=== PATIENT | male | born 1985 | race Caucasian/White ===

== ENCOUNTER 2016-09-28 06:40 | Inpatient (IN) | payer OTHER ==
[~2016-09-28] VITALS: Ht 182.9 cm; Wt 102.4 kg
[~2016-09-28 06:40] MED LIST: ALLOPURINOL100 MG PO; BACTRIM,SEPT1 TABLET PO; FOLIC ACID1 MG PO; HYDROCODON-ACE1 EAC7 PO; IBUPROFEN800 MG PO; KEFLEX500 MG PO; METHADONE10 MG PO; NICOTINE PATCH1 EAC2 TD; NORCO 10-325 T1 EACH PO; THERAGRAN1 TABLET PO; VENTOLIN HFA18 GM IH; VITAMIN B-1100 MG PO
[2016-09-28 07:37] LABS: HEMATOCRIT 49.5 % (38.0-50.0); MCH 29.3 PG (29.0-34.0); MCHC 33.7 G/DL (30.0-36.0); MEAN PLAT.VOLUME 9.9 uM^3 (9.0-12.4); PLATELET COUNT 296 K/uL (156-360); RBC DIS.WIDTH-CV 13.3 % (11.8-14.6); RBC DIS.WIDTH-SD 42.5 % (39-53); RED BLOOD COUNT 5.69 M/uL (4.00-5.50); WHITE BLOOD COUNT 8.9 K/uL (4.1-10.2)
[2016-09-28 07:52] LABS: POTASSIUM 3.9 mEq/L (3.7-5.4); SODIUM 143 mEq/L (136-147)
[2016-09-28 07:57] LABS: ADD MIUA? NO; BILIRUBIN NEGATIVE; BLOOD NEGATIVE; COLOR YELLOW ((YELLOW)); GLUCOSE (STRIP) NEGATIVE; KETONES NEGATIVE; LEUKOCYTES NEGATIVE; NITRITE NEGATIVE; PROTEIN (STRIP) NEGATIVE; SPECIFIC GRAVITY 1.013 (1.000-1.030); UROBILINOGEN 0.2 MG/DL (0.2-1.0)
[2016-09-28] MEDS ORDERED: LEVOTHYROXINE100 MCG PO (08:07)
[2016-09-28] MEDS ORDERED: OXCARBAZEPINE300 MG PO (08:07)
[2016-09-28] MEDS ORDERED: QUETIAPINE FUM400 MG PO (08:07)
[2016-09-28 08:12] LABS: CHLORIDE 106 mEq/L (99-109)
[2016-09-28 08:14] LABS: ADD MEDTOX COMMENT Y; AMPHETAMINE NEGATIVE (500 ng/mL); BARBITURATES NEGATIVE (200 ng/mL); BENZODIAZEPINES NEGATIVE (150 ng/mL); COCAINE NEGATIVE (150 ng/mL); INTERNAL CONTROLS VALID? YES; METHADONE NEGATIVE (200 ng/mL); METHAMPHETAMINE NEGATIVE (500 ng/mL); OPIATES (MORPHINE) NEGATIVE (100 ng/mL); OXYCODONE NEGATIVE (100 ng/mL); PHENCYCLIDINE NEGATIVE (25 ng/mL); PROPOXYPHENE NEGATIVE (300 ng/mL); THC CANNABINOIDS PRESUMPTIVE POSITIVE (50 ng/mL); TRICYCLIC ANTIDEPRESSANTS NEGATIVE (300 ng/mL)
[2016-09-28 08:14] LABS: GLUCOSE 95 mg/dL (70-99)
[2016-09-28 08:15] LABS: ANION GAP 14 MEQ/L (2-14)
[2016-09-28 08:16] LABS: TOTAL BILIRUBIN 0.3 mg/dL (0.0-1.0)
[2016-09-28 08:17] LABS: ALKALINE PHOSPHATASE 71 IU/L (3-129); SERUM ETHYL ALCOHOL 211 mg/dL
[2016-09-28 08:18] LABS: GFR ESTIMATE (CALCULATED) > 59 mL/min/; UREA NITROGEN (BUN) 9 mg/dL (9-23)
[2016-09-28 08:21] LABS: LIPASE 19 U/L (1.0-51.0)
[2016-09-28] MEDS ORDERED: SEROQUEL50 MG PO ×2 (14:19)
[2016-09-28] MEDS ORDERED: NEURONTIN300 MG PO (14:20)
[2016-09-28] MEDS ORDERED: SEROQUEL100 MG PO ×2 (14:38)
[2016-09-28 14:56] VITALS: BP 136/74
[2016-09-28 15:36] VITALS: BP 136/74
[2016-09-29 07:29] VITALS: BP 116/55
[2016-09-29 12:00] VITALS: BP 109/59
[2016-09-29 15:02] VITALS: BP 132/60
[2016-09-30 07:26] VITALS: BP 126/81
[2016-09-30 16:15] VITALS: BP 131/74
[2016-10-01 06:07] LABS: POINT-OF-CARE METER ID UU13113830
[2016-10-01 07:44] VITALS: BP 105/61
[2016-10-01 15:27] VITALS: BP 136/73
[2016-10-02 07:58] VITALS: BP 100/57
[2016-10-02 15:17] VITALS: BP 140/80
[2016-10-03 07:40] VITALS: BP 114/56
[2016-10-03 15:29] VITALS: BP 142/78
[2016-10-04 08:34] VITALS: BP 140/85
[2016-10-04] MEDS ORDERED: QUETIAPINE FUM300 MG PO (09:52)
[2016-10-04] MEDS ORDERED: SYNTHROID100 MCG PO (09:52)
[2016-10-04] MEDS ORDERED: NEURONTIN300 MG PO (09:52)
[2016-10-04 11:56] VITALS: BP 129/69
== END 2016-10-04 12:32 | disposition home or self-care (01) | DRG 885 ==
LOC: EME 06:40 → EDOF 13:15 → 1WEST 13:15
PROVIDERS: Nurse Practitioner Family; Psychiatry & Neurology Psychiatry
DX: F31.9 Bipolar disorder, unspecified (principal); R45.851 Suicidal ideations; F22 Delusional disorders; F41.9 Anxiety disorder, unspecified; R05 Cough; F10.10 Alcohol abuse, uncomplicated; F12.10 Cannabis abuse, uncomplicated; F17.210 Nicotine dependence, cigarettes, uncomplicated; E03.9 Hypothyroidism, unspecified; Z59.0 Homelessness
CPT/HCPCS: 71020; 80053; 81003; 82948; 83690; 84443; 84999; 85027; 90839; 97150 GO; 97165 GO; 99281; 99285; G0480

== ENCOUNTER 2016-10-08 01:46 | Inpatient (IN) | payer OTHER ==
[~2016-10-08] VITALS: Ht 182.9 cm; Wt 100.7 kg
[~2016-10-08 01:46] MED LIST changes: +LEVOTHYROXINE100 MCG PO; +NEURONTIN300 MG PO; +OXCARBAZEPINE300 MG PO; +QUETIAPINE FUM300 MG PO; +QUETIAPINE FUM400 MG PO; +SEROQUEL100 MG PO; +SEROQUEL50 MG PO; +SYNTHROID100 MCG PO
[2016-10-08 03:00] LABS: HEMATOCRIT 46.3 % (38.0-50.0); MCH 29.1 PG (29.0-34.0); MCHC 33.9 G/DL (30.0-36.0); MCV 85.9 FL (86-99); MEAN PLAT.VOLUME 9.7 uM^3 (9.0-12.4); PLATELET COUNT 266 K/uL (156-360); RBC DIS.WIDTH-CV 13.2 % (11.8-14.6); RBC DIS.WIDTH-SD 41.1 % (39-53); RED BLOOD COUNT 5.39 M/uL (4.00-5.50); WHITE BLOOD COUNT 7.4 K/uL (4.1-10.2)
[2016-10-08 03:08] LABS: CHLORIDE 107 mEq/L (99-109); POTASSIUM 3.4 mEq/L (3.7-5.4); SODIUM 143 mEq/L (136-147)
[2016-10-08 03:10] LABS: GLUCOSE 102 mg/dL (70-99)
[2016-10-08 03:11] LABS: ANION GAP 15 MEQ/L (2-14)
[2016-10-08 03:13] LABS: SERUM ETHYL ALCOHOL 300 mg/dL
[2016-10-08 03:14] LABS: GFR ESTIMATE (CALCULATED) > 59 mL/min/
[2016-10-08 03:15] LABS: UREA NITROGEN (BUN) 10 mg/dL (9-23)
[2016-10-08 09:41] LABS: BILIRUBIN NEGATIVE; BLOOD NEGATIVE; COLOR YELLOW ((YELLOW)); GLUCOSE (STRIP) NEGATIVE; KETONES NEGATIVE; LEUKOCYTES NEGATIVE; NITRITE NEGATIVE; PROTEIN (STRIP) NEGATIVE; SPECIFIC GRAVITY 1.015 (1.000-1.030); UROBILINOGEN 0.2 MG/DL (0.2-1.0)
[2016-10-08 09:42] LABS: ADD MIUA? NO; UCUL ADDED? NO
[2016-10-08 09:56] LABS: AMPHETAMINE NEGATIVE (500 ng/mL); BARBITURATES NEGATIVE (200 ng/mL); BENZODIAZEPINES NEGATIVE (150 ng/mL); COCAINE NEGATIVE (150 ng/mL); INTERNAL CONTROLS VALID? YES; METHADONE NEGATIVE (200 ng/mL); METHAMPHETAMINE NEGATIVE (500 ng/mL); OPIATES (MORPHINE) NEGATIVE (100 ng/mL); OXYCODONE NEGATIVE (100 ng/mL); PHENCYCLIDINE NEGATIVE (25 ng/mL); PROPOXYPHENE NEGATIVE (300 ng/mL); THC CANNABINOIDS NEGATIVE (50 ng/mL); TRICYCLIC ANTIDEPRESSANTS NEGATIVE (300 ng/mL)
[2016-10-08] MEDS ORDERED: GABAPENTIN300 MG PO (13:54)
[2016-10-08] MEDS ORDERED: NICOTINE PATCH1 EAC2 TD (16:03)
[2016-10-08 16:14] VITALS: BP 134/84
[2016-10-09 07:53] VITALS: BP 131/75
[2016-10-09 16:17] VITALS: BP 135/83
[2016-10-10 07:40] VITALS: BP 124/70
[2016-10-10 15:53] VITALS: BP 138/70
[2016-10-11 07:41] VITALS: BP 126/61
[2016-10-11] MEDS ORDERED: GABAPENTIN300 MG PO (10:31)
[2016-10-11] MEDS ORDERED: SYNTHROID100 MCG PO (10:31)
== END 2016-10-11 12:28 | disposition home or self-care (01) | DRG 885 ==
LOC: EME → EDBD 01:46 → 1WEST 13:25 → EDOF 13:25 → 1WEST 15:52
PROVIDERS: Emergency Medicine
DX: F31.9 Bipolar disorder, unspecified (principal); R45.851 Suicidal ideations; Y90.8 Blood alcohol level of 240 mg/100 ml or more; K21.9 Gastro-esophageal reflux disease without esophagitis; I10 Essential (primary) hypertension; E66.9 Obesity, unspecified; F10.10 Alcohol abuse, uncomplicated; F17.210 Nicotine dependence, cigarettes, uncomplicated; Z59.0 Homelessness; Z68.30 Body mass index [BMI] 30.0-30.9, adult
CPT/HCPCS: 80048; 81003; 85027; 90837; 97150 GO; 97165 GO; G0480; J1630; Q0177

== ENCOUNTER 2016-10-13 19:55 | Emergency (ER) | payer OTHER ==
[~2016-10-13] VITALS: Ht 182.9 cm; Wt 112.5 kg
[~2016-10-13 19:55] MED LIST changes: +GABAPENTIN300 MG PO
[2016-10-13 19:56] VITALS: BP 153/91
== END 2016-10-13 20:34 ==
LOC: EME 19:55
DX: F32.9 Major depressive disorder, single episode, unspecified (principal); Z02.89 Encounter for other administrative examinations; F17.200 Nicotine dependence, unspecified, uncomplicated
CPT/HCPCS: 99281; 99282

== ENCOUNTER → 2016-10-16 | Emergency (ER) | payer OTHER ==
[~2016-10-16] VITALS: Ht 167.6 cm; Wt 98.4 kg
[2016-10-16 04:34] VITALS: BP 139/94
== END | disposition left against medical advice (07) ==
LOC: EME → EDBD 03:38 → EME 03:38
DX: S49.91XA Unspecified injury of right shoulder and upper arm, initial encounter (principal); W13.1XXA Fall from, out of or through bridge, initial encounter; K21.9 Gastro-esophageal reflux disease without esophagitis; F31.9 Bipolar disorder, unspecified; Z59.0 Homelessness; F17.200 Nicotine dependence, unspecified, uncomplicated
CPT/HCPCS: 99281; 99283

== ENCOUNTER 2016-10-25 14:06 | Inpatient (IN) | payer OTHER ==
[~2016-10-25] VITALS: Ht 193 cm; Wt 102.4 kg
[2016-10-25 15:22] LABS: HEMATOCRIT 42.6 % (38.0-50.0); MCH 29.3 PG (29.0-34.0); MCHC 34.3 G/DL (30.0-36.0); MCV 85.4 FL (86-99); RBC DIS.WIDTH-SD 43.1 % (39-53); RED BLOOD COUNT 4.99 M/uL (4.00-5.50); WHITE BLOOD COUNT 4.9 K/uL (4.1-10.2)
[2016-10-25 15:26] LABS: CHLORIDE 104 mEq/L (99-109); POTASSIUM 3.5 mEq/L (3.7-5.4); SODIUM 140 mEq/L (136-147)
[2016-10-25 15:28] LABS: GLUCOSE 100 mg/dL (70-99)
[2016-10-25 15:29] LABS: ANION GAP 14 MEQ/L (2-14)
[2016-10-25 15:30] LABS: TOTAL BILIRUBIN 0.5 mg/dL (0.0-1.0)
[2016-10-25 15:31] LABS: SERUM ETHYL ALCOHOL 333 mg/dL
[2016-10-25 15:32] LABS: ALKALINE PHOSPHATASE 77 IU/L (3-129); GFR ESTIMATE (CALCULATED) > 59 mL/min/
[2016-10-25 15:33] LABS: UREA NITROGEN (BUN) 7 mg/dL (9-23)
[2016-10-25 15:57] LABS: MEAN PLAT.VOLUME 9.5 uM^3 (9.0-12.4); PLAT.SUFFICIENCY DECREASED
[2016-10-25 15:58] LABS: PLATELET COUNT 138 K/uL (156-360)
[2016-10-25 16:07] LABS: ADD MIUA? NO; BILIRUBIN NEGATIVE; BLOOD NEGATIVE; COLOR YELLOW ((YELLOW)); GLUCOSE (STRIP) NEGATIVE; KETONES NEGATIVE; LEUKOCYTES NEGATIVE; NITRITE NEGATIVE; PROTEIN (STRIP) NEGATIVE; SPECIFIC GRAVITY 1.008 (1.000-1.030); UROBILINOGEN 0.2 MG/DL (0.2-1.0)
[2016-10-25 16:16] LABS: AMPHETAMINE NEGATIVE (500 ng/mL); BARBITURATES NEGATIVE (200 ng/mL); BENZODIAZEPINES NEGATIVE (150 ng/mL); COCAINE NEGATIVE (150 ng/mL); INTERNAL CONTROLS VALID? YES; METHADONE NEGATIVE (200 ng/mL); METHAMPHETAMINE NEGATIVE (500 ng/mL); OPIATES (MORPHINE) NEGATIVE (100 ng/mL); OXYCODONE NEGATIVE (100 ng/mL); PHENCYCLIDINE NEGATIVE (25 ng/mL); PROPOXYPHENE NEGATIVE (300 ng/mL); THC CANNABINOIDS NEGATIVE (50 ng/mL); TRICYCLIC ANTIDEPRESSANTS NEGATIVE (300 ng/mL)
[2016-10-26 06:17] VITALS: BP 143/89
[2016-10-26 07:30] VITALS: BP 128/72
[2016-10-26 15:48] VITALS: BP 155/82
[2016-10-26 19:55] VITALS: BP 137/98
[2016-10-27 07:28] VITALS: BP 155/90
== END 2016-10-27 10:00 | disposition home or self-care (01) | DRG 897 ==
LOC: EME 14:06 → 1WEST 10-26 03:17 → EDOF 10-26 03:17 → 1WEST 10-26 05:48
PROVIDERS: Emergency Medicine
DX: F10.229 Alcohol dependence with intoxication, unspecified (principal); F10.239 Alcohol dependence with withdrawal, unspecified; Y90.8 Blood alcohol level of 240 mg/100 ml or more; F31.9 Bipolar disorder, unspecified; R45.851 Suicidal ideations; Z59.0 Homelessness; K21.9 Gastro-esophageal reflux disease without esophagitis; M54.9 Dorsalgia, unspecified; E07.9 Disorder of thyroid, unspecified; F17.200 Nicotine dependence, unspecified, uncomplicated
CPT/HCPCS: 80053; 81003; 85027; 90839; 99281; 99285; G0480; J1630; J2060

== ENCOUNTER 2017-03-23 01:26 | Inpatient (IN) | payer OTHER ==
[~2017-03-23] VITALS: Ht 182.9 cm; Wt 106.0 kg
[2017-03-23 02:43] LABS: HEMATOCRIT 45.6 % (38.0-50.0); MCH 32.1 PG (29.0-34.0); MCHC 33.6 G/DL (30.0-36.0); MCV 95.6 FL (86-99); PLATELET COUNT 291 K/uL (156-360); RBC DIS.WIDTH-CV 13.2 % (11.8-14.6); RBC DIS.WIDTH-SD 46.4 % (39-53); RED BLOOD COUNT 4.77 M/uL (4.00-5.50)
[2017-03-23 02:52] LABS: CHLORIDE 104 mEq/L (99-109); POTASSIUM 3.9 mEq/L (3.7-5.4); SODIUM 139 mEq/L (136-147)
[2017-03-23 02:53] LABS: GLUCOSE 107 mg/dL (70-99)
[2017-03-23 02:55] LABS: ANION GAP 16 MEQ/L (2-14)
[2017-03-23 02:57] LABS: GFR ESTIMATE (CALCULATED) > 59 mL/min/; SERUM ETHYL ALCOHOL 128 mg/dL
[2017-03-23 02:58] LABS: UREA NITROGEN (BUN) 12 mg/dL (9-23)
[2017-03-23 04:38] LABS: ADD MIUA? YES; BILIRUBIN NEGATIVE; BLOOD NEGATIVE; COLOR YELLOW ((YELLOW)); GLUCOSE (STRIP) NEGATIVE; KETONES NEGATIVE; LEUKOCYTES NEGATIVE; NITRITE NEGATIVE; PROTEIN (STRIP) 30; SPECIFIC GRAVITY 1.025 (1.000-1.030)
[2017-03-23 04:48] LABS: AMPHETAMINE NEGATIVE (500 ng/mL); BARBITURATES NEGATIVE (200 ng/mL); BENZODIAZEPINES NEGATIVE (150 ng/mL); COCAINE NEGATIVE (150 ng/mL); INTERNAL CONTROLS VALID? YES; METHADONE NEGATIVE (200 ng/mL); METHAMPHETAMINE NEGATIVE (500 ng/mL); OPIATES (MORPHINE) NEGATIVE (100 ng/mL); OXYCODONE NEGATIVE (100 ng/mL); PHENCYCLIDINE NEGATIVE (25 ng/mL); PROPOXYPHENE NEGATIVE (300 ng/mL); THC CANNABINOIDS PRESUMPTIVE POSITIVE (50 ng/mL); TRICYCLIC ANTIDEPRESSANTS NEGATIVE (300 ng/mL)
[2017-03-23 04:49] LABS: ADD MEDTOX COMMENT Y
[2017-03-23 05:51] VITALS: BP 126/66
[2017-03-23 07:52] VITALS: BP 124/61
[2017-03-23 09:09] LABS: CASTS PRESENT /LPF; HYALINE CASTS 15-20 /LPF; MUCUS 1+ /LPF
[2017-03-23 09:10] LABS: BACTERIA NONE SEEN /HPF; CRYSTALS NONE SEEN; EPITHELIAL CELLS RARE /HPF; RED BLOOD CELLS NONE SEEN /HPF (0-5); UCUL ADDED? NO; WHITE BLOOD CELLS 0-5 /HPF (0-5)
[2017-03-23 15:22] VITALS: BP 100/58
[2017-03-24 07:58] VITALS: BP 111/58
[2017-03-24 15:48] VITALS: BP 111/68
[2017-03-25 08:01] VITALS: BP 97/50
[2017-03-25 14:57] VITALS: BP 129/80
[2017-03-26 07:19] VITALS: BP 124/62
[2017-03-26 15:38] VITALS: BP 118/66
[2017-03-27 07:53] VITALS: BP 108/79
[2017-03-27 15:59] VITALS: BP 123/63
[2017-03-28 07:50] VITALS: BP 125/73
[2017-03-28 15:29] VITALS: BP 123/73
[2017-03-29 07:44] VITALS: BP 96/53
[2017-03-29 09:34] VITALS: BP 149/80
[2017-03-29 15:31] VITALS: BP 122/63
[2017-03-30 08:03] VITALS: BP 109/53
[2017-03-30 15:36] VITALS: BP 128/78
[2017-03-31 07:28] VITALS: BP 112/65
[2017-03-31] MEDS ORDERED: SYNTHROID100 MCG PO (08:58)
[2017-03-31] MEDS ORDERED: QUETIAPINE FUM400 MG PO (08:58)
[2017-03-31] MEDS ORDERED: GABAPENTIN300 MG PO (08:58)
== END 2017-03-31 11:20 | disposition home or self-care (01) | DRG 885 ==
LOC: EME 01:26 → 1WEST 04:32 → EDOF 04:32 → ENRESERV 04:57 → 1WEST 05:14
PROVIDERS: Emergency Medicine
DX: F31.9 Bipolar disorder, unspecified (principal); R45.851 Suicidal ideations; F10.239 Alcohol dependence with withdrawal, unspecified; K21.9 Gastro-esophageal reflux disease without esophagitis; F41.9 Anxiety disorder, unspecified; F17.200 Nicotine dependence, unspecified, uncomplicated; Y90.6 Blood alcohol level of 120-199 mg/100 ml; Z91.14 Patient's other noncompliance with medication regimen; Z91.19 Patient's noncompliance with other medical treatment and regimen
CPT/HCPCS: 80048; 81003; 84999; 85027; 90839; 97150 GO; 99281; 99285; G0480

== ENCOUNTER 2017-04-07 23:59 | Inpatient (IN) | payer OTHER ==
[~2017-04-07] VITALS: Ht 182.9 cm; Wt 106.6 kg
[2017-04-08 00:26] LABS: MCH 31.6 PG (29.0-34.0); MCHC 34.4 G/DL (30.0-36.0); MCV 91.6 FL (86-99); MEAN PLAT.VOLUME 9.8 uM^3 (9.0-12.4); PLATELET COUNT 264 K/uL (156-360); RBC DIS.WIDTH-CV 12.7 % (11.8-14.6); RBC DIS.WIDTH-SD 42.9 % (39-53); RED BLOOD COUNT 4.91 M/uL (4.00-5.50); WHITE BLOOD COUNT 8.4 K/uL (4.1-10.2)
[2017-04-08 00:31] LABS: CHLORIDE 109 mEq/L (99-109)
[2017-04-08 00:32] LABS: POTASSIUM 3.7 mEq/L (3.7-5.4); SODIUM 145 mEq/L (136-147)
[2017-04-08 00:34] LABS: GLUCOSE 89 mg/dL (70-99)
[2017-04-08 00:35] LABS: ANION GAP 14 MEQ/L (2-14)
[2017-04-08 00:36] LABS: TOTAL BILIRUBIN 0.3 mg/dL (0.0-1.0)
[2017-04-08 00:37] LABS: ALKALINE PHOSPHATASE 63 IU/L (3-129); SERUM ETHYL ALCOHOL 329 mg/dL
[2017-04-08 00:38] LABS: GFR ESTIMATE (CALCULATED) > 59 mL/min/ (58.99-99999)
[2017-04-08 00:39] LABS: UREA NITROGEN (BUN) 10 mg/dL (9-23)
[2017-04-08 07:12] LABS: ADD MIUA? NO; BILIRUBIN NEGATIVE; BLOOD NEGATIVE; COLOR YELLOW ((YELLOW)); GLUCOSE (STRIP) NEGATIVE; KETONES NEGATIVE; LEUKOCYTES NEGATIVE; NITRITE NEGATIVE; PROTEIN (STRIP) NEGATIVE; SPECIFIC GRAVITY 1.014 (1.000-1.030); UCUL ADDED? NO; UROBILINOGEN 0.2 MG/DL (0.2-1.0)
[2017-04-08 07:21] LABS: AMPHETAMINE NEGATIVE (500 ng/mL); BENZODIAZEPINES PRESUMPTIVE POSITIVE (150 ng/mL); COCAINE NEGATIVE (150 ng/mL); METHAMPHETAMINE NEGATIVE (500 ng/mL); OPIATES (MORPHINE) NEGATIVE (100 ng/mL); PHENCYCLIDINE NEGATIVE (25 ng/mL); THC CANNABINOIDS PRESUMPTIVE POSITIVE (50 ng/mL)
[2017-04-08 07:22] LABS: ADD MEDTOX COMMENT Y; BARBITURATES NEGATIVE (200 ng/mL); INTERNAL CONTROLS VALID? YES; METHADONE NEGATIVE (200 ng/mL); OXYCODONE NEGATIVE (100 ng/mL); PROPOXYPHENE NEGATIVE (300 ng/mL); TRICYCLIC ANTIDEPRESSANTS NEGATIVE (300 ng/mL)
[2017-04-08 08:08] LABS: BENZODIAZEPINES, URINE SCREEN POSITIVE (200 ng/mL)
[2017-04-08 13:37] VITALS: BP 140/76
[2017-04-08 15:35] VITALS: BP 130/60
[2017-04-09 07:47] VITALS: BP 122/90
[2017-04-09 15:58] VITALS: BP 141/81
[2017-04-09 19:18] VITALS: BP 146/74
[2017-04-10 07:08] VITALS: BP 103/56
[2017-04-10 11:19] VITALS: BP 126/74
[2017-04-10 15:35] VITALS: BP 152/84
[2017-04-10 19:39] VITALS: BP 135/91
[2017-04-11 07:57] VITALS: BP 131/71
[2017-04-11 15:39] VITALS: BP 137/79
[2017-04-12] MEDS ORDERED: QUETIAPINE FUM400 MG PO (08:01)
[2017-04-12] MEDS ORDERED: GABAPENTIN300 MG PO (08:01)
[2017-04-12] MEDS ORDERED: LEVOTHYROXINE100 MCG PO (08:01)
[2017-04-12 08:05] VITALS: BP 115/80
== END 2017-04-12 08:35 | disposition home or self-care (01) | DRG 885 ==
LOC: EME 23:59 → 1WEST 04-08 10:27 → EDOF 04-08 10:27 → ENRESERV 04-08 13:23 → 1WEST 04-08 13:29
PROVIDERS: Emergency Medicine
DX: F31.9 Bipolar disorder, unspecified (principal); R45.851 Suicidal ideations; F10.229 Alcohol dependence with intoxication, unspecified; Y90.8 Blood alcohol level of 240 mg/100 ml or more; Z59.0 Homelessness; F41.9 Anxiety disorder, unspecified; F12.90 Cannabis use, unspecified, uncomplicated; K21.9 Gastro-esophageal reflux disease without esophagitis; F17.200 Nicotine dependence, unspecified, uncomplicated
CPT/HCPCS: 80053; 81003; 84443; 84999; 85027; 90837; 97150 GO; 97166 GO; 99281; 99285; G0480; J1630; J2060; Q0177

== ENCOUNTER 2017-04-16 00:45 | Emergency (ER) | payer OTHER ==
[~2017-04-16] VITALS: Ht 182.9 cm; Wt 106.3 kg
[2017-04-16 01:12] LABS: HEMATOCRIT 43.2 % (38.0-50.0); MCH 31.6 PG (29.0-34.0); MCHC 34.3 G/DL (30.0-36.0); MCV 92.3 FL (86-99); MEAN PLAT.VOLUME 9.9 uM^3 (9.0-12.4); PLATELET COUNT 234 K/uL (156-360); RBC DIS.WIDTH-SD 43.8 % (39-53); RED BLOOD COUNT 4.68 M/uL (4.00-5.50); WHITE BLOOD COUNT 6.6 K/uL (4.1-10.2)
[2017-04-16 01:26] LABS: ADD MIUA? NO; BILIRUBIN NEGATIVE; BLOOD NEGATIVE; COLOR STRAW ((YELLOW)); GLUCOSE (STRIP) NEGATIVE; KETONES NEGATIVE; LEUKOCYTES NEGATIVE; NITRITE NEGATIVE; PROTEIN (STRIP) NEGATIVE; SPECIFIC GRAVITY 1.005 (1.000-1.030); UCUL ADDED? NO; UROBILINOGEN 0.2 MG/DL (0.2-1.0)
[2017-04-16 01:28] LABS: CHLORIDE 109 mEq/L (99-109); POTASSIUM 3.4 mEq/L (3.7-5.4); SODIUM 144 mEq/L (136-147)
[2017-04-16 01:30] LABS: GLUCOSE 93 mg/dL (70-99)
[2017-04-16 01:31] LABS: ANION GAP 13 MEQ/L (2-14)
[2017-04-16 01:33] LABS: SERUM ETHYL ALCOHOL 312 mg/dL
[2017-04-16 01:34] LABS: GFR ESTIMATE (CALCULATED) > 59 mL/min/ (58.99-99999)
[2017-04-16 01:35] LABS: UREA NITROGEN (BUN) 6 mg/dL (9-23)
[2017-04-16 01:44] LABS: ADD MEDTOX COMMENT Y; AMPHETAMINE NEGATIVE (500 ng/mL); BARBITURATES NEGATIVE (200 ng/mL); BENZODIAZEPINES PRESUMPTIVE POSITIVE (150 ng/mL); COCAINE NEGATIVE (150 ng/mL); INTERNAL CONTROLS VALID? YES; METHADONE NEGATIVE (200 ng/mL); METHAMPHETAMINE NEGATIVE (500 ng/mL); OPIATES (MORPHINE) NEGATIVE (100 ng/mL); OXYCODONE NEGATIVE (100 ng/mL); PHENCYCLIDINE NEGATIVE (25 ng/mL); PROPOXYPHENE NEGATIVE (300 ng/mL); THC CANNABINOIDS PRESUMPTIVE POSITIVE (50 ng/mL); TRICYCLIC ANTIDEPRESSANTS NEGATIVE (300 ng/mL)
[2017-04-16 05:13] LABS: BENZODIAZEPINES, URINE SCREEN POSITIVE (200 ng/mL)
[2017-04-16 10:47] VITALS: BP 136/70
== END 2017-04-16 10:10 | disposition home or self-care (01) ==
LOC: EME 00:45
PROVIDERS: Emergency Medicine
DX: F10.129 Alcohol abuse with intoxication, unspecified (principal); F32.9 Major depressive disorder, single episode, unspecified; R45.1 Restlessness and agitation; Y90.8 Blood alcohol level of 240 mg/100 ml or more; F17.200 Nicotine dependence, unspecified, uncomplicated
CPT/HCPCS: 80048; 81003; 84999; 85027; 90837; 99281; 99285; G0480; J1630; J2060

== ENCOUNTER 2017-04-25 13:50 | Emergency (ER) | payer OTHER ==
[~2017-04-25] VITALS: Ht 182.9 cm; Wt 106.8 kg
[2017-04-25 18:42] LABS: BASOPHIL (%) 1.3 % (0-1); BASOPHIL COUNT 0.1 K/uL (0-0.1); EOSINOPHIL (%) 1.8 % (0-5); EOSINOPHIL COUNT 0.1 K/uL (0-0.3); HEMATOCRIT 44.6 % (38.0-50.0); HEMOGLOBIN 15.3 G/DL (12.5-16.6); IMMATURE GRANULOCYTE (%) 0.3 % (0.0-0.7); LYMPHOCYTE (%) 38.2 % (15-42); LYMPHOCYTE COUNT 2.3 K/uL (1.0-2.8); MCH 31.4 PG (29.0-34.0); MCHC 34.3 G/DL (30.0-36.0); MCV 91.6 FL (86-99); MONOCYTE (%) 7.5 % (3-12); MONOCYTE COUNT 0.5 K/uL (0-0.8); NEUTROPHIL (%) 50.9 % (45-76); PLATELET COUNT 246 K/uL (156-360); RBC DIS.WIDTH-CV 13.6 % (11.8-14.6); RBC DIS.WIDTH-SD 45.9 % (39-53); RED BLOOD COUNT 4.87 M/uL (4.00-5.50)
[2017-04-25 18:54] LABS: ALBUMIN 4.3 g/dL (3.2-4.8); CHLORIDE 105 mEq/L (99-109); SODIUM 142 mEq/L (136-147)
[2017-04-25 18:57] LABS: GLUCOSE 83 mg/dL (70-99); TOTAL PROTEIN 7.6 g/dL (6.4-8.3)
[2017-04-25 18:59] LABS: TOTAL BILIRUBIN 0.4 mg/dL (0.0-1.0)
[2017-04-25 19:00] LABS: ALKALINE PHOSPHATASE 57 IU/L (3-129); GFR ESTIMATE (CALCULATED) > 59 mL/min/ (58.99-99999); SERUM ETHYL ALCOHOL 250 mg/dL
[2017-04-25 19:01] LABS: UREA NITROGEN (BUN) 11 mg/dL (9-23)
[2017-04-25 19:02] LABS: AST (GOT) 70 IU/L (2-34)
[2017-04-25 19:03] LABS: ALT (GPT) 69 IU/L (3-49)
[2017-04-25 19:49] LABS: AMPHETAMINE NEGATIVE (500 ng/mL); BARBITURATES NEGATIVE (200 ng/mL); BENZODIAZEPINES PRESUMPTIVE POSITIVE (150 ng/mL); BUPRENORPHINE NEGATIVE (10 ng/mL); COCAINE NEGATIVE (150 ng/mL); METHADONE NEGATIVE (200 ng/mL); METHAMPHETAMINE NEGATIVE (500 ng/mL); OPIATES (MORPHINE) NEGATIVE (100 ng/mL); OXYCODONE NEGATIVE (100 ng/mL); PHENCYCLIDINE NEGATIVE (25 ng/mL); PROPOXYPHENE NEGATIVE (300 ng/mL); THC CANNABINOIDS PRESUMPTIVE POSITIVE (50 ng/mL); TRICYCLIC ANTIDEPRESSANTS NEGATIVE (300 ng/mL)
[2017-04-25 20:10] VITALS: BP 108/61
[2017-04-25 20:12] LABS: BENZODIAZEPINES, URINE SCREEN POSITIVE (200 ng/mL)
== END 2017-04-25 20:11 | disposition left against medical advice (07) ==
LOC: EME 13:50
PROVIDERS: Emergency Medicine
DX: F31.9 Bipolar disorder, unspecified (principal); F10.20 Alcohol dependence, uncomplicated; F10.229 Alcohol dependence with intoxication, unspecified; Y90.8 Blood alcohol level of 240 mg/100 ml or more; F20.9 Schizophrenia, unspecified; Z91.14 Patient's other noncompliance with medication regimen; F17.200 Nicotine dependence, unspecified, uncomplicated; F12.10 Cannabis abuse, uncomplicated
CPT/HCPCS: 80053; 84999; 85025; 99281; 99283; G0480

== ENCOUNTER 2017-04-29 00:15 | Emergency (ER) | payer OTHER ==
[~2017-04-29] VITALS: Ht 182.9 cm; Wt 109.2 kg
[2017-04-29 01:44] LABS: BASOPHIL (%) 1.1 % (0-1); BASOPHIL COUNT 0.1 K/uL (0-0.1); EOSINOPHIL COUNT 0.2 K/uL (0-0.3); HEMATOCRIT 41.2 % (38.0-50.0); LYMPHOCYTE COUNT 2.1 K/uL (1.0-2.8); MCH 31.5 PG (29.0-34.0); MCV 92.8 FL (86-99); MONOCYTE (%) 11.6 % (3-12); MONOCYTE COUNT 0.7 K/uL (0-0.8); NEUTROPHIL (%) 47.3 % (45-76); NEUTROPHIL COUNT 2.7 K/uL (1.8-6.4); PLATELET COUNT 216 K/uL (156-360); RBC DIS.WIDTH-CV 13.7 % (11.8-14.6); RBC DIS.WIDTH-SD 46.5 % (39-53); RED BLOOD COUNT 4.44 M/uL (4.00-5.50); WHITE BLOOD COUNT 5.7 K/uL (4.1-10.2)
[2017-04-29 01:56] LABS: CHLORIDE 107 mEq/L (99-109); SODIUM 144 mEq/L (136-147)
[2017-04-29 01:57] LABS: MAGNESIUM 2.1 mg/dL (1.3-2.7)
[2017-04-29 01:59] LABS: GLUCOSE 97 mg/dL (70-99); TOTAL PROTEIN 6.7 g/dL (6.4-8.3)
[2017-04-29 02:02] LABS: ALKALINE PHOSPHATASE 55 IU/L (3-129); GFR ESTIMATE (CALCULATED) > 59 mL/min/ (58.99-99999); TOTAL BILIRUBIN 0.3 mg/dL (0.0-1.0)
[2017-04-29 02:04] LABS: AST (GOT) 58 IU/L (2-34); UREA NITROGEN (BUN) 9 mg/dL (9-23)
[2017-04-29 02:05] LABS: ALT (GPT) 55 IU/L (3-49)
[2017-04-29 11:08] VITALS: BP 135/59
== END 2017-04-29 11:08 | disposition home or self-care (01) ==
LOC: EME 00:15
PROVIDERS: Emergency Medicine
DX: F10.129 Alcohol abuse with intoxication, unspecified (principal); K21.9 Gastro-esophageal reflux disease without esophagitis; F41.9 Anxiety disorder, unspecified; F20.9 Schizophrenia, unspecified; F17.200 Nicotine dependence, unspecified, uncomplicated
CPT/HCPCS: 71045; 80053; 83735; 85025; 99281; 99285; J7030

== ENCOUNTER 2017-05-01 01:14 | Inpatient (IN) | payer OTHER ==
[~2017-05-01] VITALS: Ht 182.9 cm; Wt 110.4 kg
[2017-05-01 02:18] LABS: BASOPHIL (%) 0.7 % (0-1); EOSINOPHIL (%) 2.6 % (0-5); EOSINOPHIL COUNT 0.2 K/uL (0-0.3); HEMATOCRIT 45.6 % (38.0-50.0); HEMOGLOBIN 15.5 G/DL (12.5-16.6); LYMPHOCYTE (%) 34.6 % (15-42); MCH 31.4 PG (29.0-34.0); MCV 92.3 FL (86-99); MONOCYTE (%) 8.6 % (3-12); MONOCYTE COUNT 0.5 K/uL (0-0.8); NEUTROPHIL (%) 53.5 % (45-76); PLATELET COUNT 195 K/uL (156-360); RBC DIS.WIDTH-CV 13.6 % (11.8-14.6); RBC DIS.WIDTH-SD 46.3 % (39-53); RED BLOOD COUNT 4.94 M/uL (4.00-5.50); WHITE BLOOD COUNT 5.7 K/uL (4.1-10.2)
[2017-05-01 02:25] LABS: ALBUMIN 4.5 g/dL (3.2-4.8)
[2017-05-01 02:26] LABS: CHLORIDE 103 mEq/L (99-109); POTASSIUM 3.8 mEq/L (3.7-5.4); SODIUM 141 mEq/L (136-147)
[2017-05-01 02:28] LABS: GLUCOSE 84 mg/dL (70-99); TOTAL PROTEIN 7.4 g/dL (6.4-8.3)
[2017-05-01 02:31] LABS: ALKALINE PHOSPHATASE 62 IU/L (3-129); SERUM ETHYL ALCOHOL 320 mg/dL
[2017-05-01 02:32] LABS: CREATININE 0.9 mg/dL (0.6-1.3); GFR ESTIMATE (CALCULATED) > 59 mL/min/ (58.99-99999)
[2017-05-01 02:33] LABS: UREA NITROGEN (BUN) 9 mg/dL (9-23)
[2017-05-01 02:35] LABS: ALT (GPT) 78 IU/L (3-49)
[2017-05-01 02:44] LABS: AST (GOT) 100 IU/L (2-34); TOTAL BILIRUBIN 0.4 mg/dL (0.0-1.0)
[2017-05-01 04:51] LABS: AMPHETAMINE NEGATIVE (500 ng/mL); BARBITURATES NEGATIVE (200 ng/mL); BENZODIAZEPINES PRESUMPTIVE POSITIVE (150 ng/mL); BUPRENORPHINE NEGATIVE (10 ng/mL); COCAINE NEGATIVE (150 ng/mL); METHADONE NEGATIVE (200 ng/mL); METHAMPHETAMINE NEGATIVE (500 ng/mL); OPIATES (MORPHINE) NEGATIVE (100 ng/mL); OXYCODONE NEGATIVE (100 ng/mL); PHENCYCLIDINE NEGATIVE (25 ng/mL); PROPOXYPHENE NEGATIVE (300 ng/mL); THC CANNABINOIDS NEGATIVE (50 ng/mL); TRICYCLIC ANTIDEPRESSANTS NEGATIVE (300 ng/mL)
[2017-05-01 05:25] LABS: BENZODIAZEPINES, URINE SCREEN POSITIVE (200 ng/mL)
[2017-05-01 13:16] VITALS: BP 138/93
[2017-05-01 15:44] VITALS: BP 159/88
[2017-05-01 18:47] VITALS: BP 164/74
[2017-05-01 23:11] VITALS: BP 141/65
[2017-05-02 07:56] VITALS: BP 119/80
[2017-05-02 15:26] VITALS: BP 133/61
[2017-05-03 07:53] VITALS: BP 150/79
[2017-05-03 15:16] VITALS: BP 135/64
[2017-05-04 03:46] VITALS: BP 135/94
[2017-05-04 07:33] VITALS: BP 128/77
[2017-05-04 16:10] VITALS: BP 133/58
[2017-05-05 08:04] VITALS: BP 126/57
[2017-05-05 16:49] VITALS: BP 127/69
[2017-05-06 07:53] VITALS: BP 117/72
[2017-05-06 15:39] VITALS: BP 132/76
[2017-05-07 08:02] VITALS: BP 134/72
[2017-05-07 15:56] VITALS: BP 113/54
[2017-05-08 07:41] VITALS: BP 154/73
[2017-05-08 16:09] VITALS: BP 129/65
[2017-05-09 07:51] VITALS: BP 123/61
[2017-05-09] MEDS ORDERED: RISPERDAL3 MG PO (08:53)
[2017-05-09] MEDS ORDERED: BACTRIM,SEPT1 TABLET PO (08:53)
[2017-05-09] MEDS ORDERED: GABAPENTIN300 MG PO (08:53)
[2017-05-09] MEDS ORDERED: OFLOXACIN10 M1 BOTH EYES (08:54)
[2017-05-09] MEDS ORDERED: LEVOTHYROXINE100 MCG PO (08:54)
== END 2017-05-09 13:50 | disposition home or self-care (01) | DRG 885 ==
LOC: EME 01:14 → EDOF 11:46 → 1WEST 11:46 → ENRESERV 13:12 → 1WEST 13:13
PROVIDERS: Emergency Medicine
DX: F31.9 Bipolar disorder, unspecified (principal); F10.229 Alcohol dependence with intoxication, unspecified; H15.101 Unspecified episcleritis, right eye; F19.10 Other psychoactive substance abuse, uncomplicated; F20.9 Schizophrenia, unspecified; G40.909 Epilepsy, unspecified, not intractable, without status epilepticus; F12.90 Cannabis use, unspecified, uncomplicated; F13.10 Sedative, hypnotic or anxiolytic abuse, uncomplicated; F17.210 Nicotine dependence, cigarettes, uncomplicated; Y90.8 Blood alcohol level of 240 mg/100 ml or more; E03.9 Hypothyroidism, unspecified; E66.9 Obesity, unspecified; H10.9 Unspecified conjunctivitis; M10.9 Gout, unspecified; K21.9 Gastro-esophageal reflux disease without esophagitis
CPT/HCPCS: 71045; 71046; 80053; 83735; 84999; 85025; 90839; 97150 GO; 97166 GO; 99281; 99285; G0480; J2794; J7030; J7512; Q0177

== ENCOUNTER 2017-05-12 21:26 | Observation (INO) | payer OTHER ==
[~2017-05-12] VITALS: Ht 182.9 cm; Wt 109.7 kg
[~2017-05-12 21:26] MED LIST changes: +OFLOXACIN10 M1 BOTH EYES; +RISPERDAL3 MG PO
[2017-05-12 22:33] LABS: HEMATOCRIT 43.7 % (38.0-50.0); HEMOGLOBIN 15.1 G/DL (12.5-16.6); MCH 31.7 PG (29.0-34.0); MCHC 34.6 G/DL (30.0-36.0); MCV 91.6 FL (86-99); RBC DIS.WIDTH-CV 13.2 % (11.8-14.6); RBC DIS.WIDTH-SD 44.7 % (39-53); RED BLOOD COUNT 4.77 M/uL (4.00-5.50); WHITE BLOOD COUNT 8.7 K/uL (4.1-10.2)
[2017-05-12 22:34] LABS: PLATELET COUNT 309 K/uL (156-360)
[2017-05-12 22:41] LABS: CHLORIDE 103 mEq/L (99-109); POTASSIUM 4.2 mEq/L (3.7-5.4); SODIUM 139 mEq/L (136-147)
[2017-05-12 22:43] LABS: GLUCOSE 99 mg/dL (70-99)
[2017-05-12 22:47] LABS: CREATININE 1.3 mg/dL (0.6-1.3); GFR ESTIMATE (CALCULATED) > 59 mL/min/ (58.99-99999)
[2017-05-12 22:48] LABS: UREA NITROGEN (BUN) 14 mg/dL (9-23)
[2017-05-13] VITALS (9 sets, daily range): BP systolic 119–155; BP diastolic 60–95
[2017-05-13 02:00] LABS: SERUM ETHYL ALCOHOL 90 mg/dL
[2017-05-13 11:43] LABS: APPEARANCE SL.HAZY ((CLEAR)); BILIRUBIN NEGATIVE; BLOOD NEGATIVE; COLOR YELLOW ((YELLOW)); GLUCOSE (STRIP) NEGATIVE; KETONES NEGATIVE; LEUKOCYTES NEGATIVE; NITRITE NEGATIVE; PROTEIN (STRIP) NEGATIVE; SPECIFIC GRAVITY 1.024 (1.000-1.030); UROBILINOGEN 0.2 MG/DL (0.2-1.0)
[2017-05-13 11:47] LABS: BACTERIA NONE SEEN /HPF; EPITHELIAL CELLS NONE SEEN /HPF; MUCUS TRACE /LPF; RED BLOOD CELLS 0-5 /HPF (0-5); UCUL ADDED? NO; WHITE BLOOD CELLS 0-5 /HPF (0-5)
[2017-05-13 12:24] LABS: BENZODIAZEPINES, URINE SCREEN POSITIVE (200 ng/mL)
[2017-05-13 12:44] LABS: TROP-I INTERPRETATION NEGATIVE; TROPONIN-I < 0.01 ng/mL (0.0-0.30)
[2017-05-13] MEDS ORDERED: FLUPHENAZINE HCL1 MG PO (13:32)
[2017-05-13] MEDS ORDERED: FLUPHENAZINE H2.5 MG PO (13:32)
[2017-05-14 04:16] VITALS: BP 140/76
[2017-05-14 08:15] VITALS: BP 142/70
== END 2017-05-14 13:21 | disposition home or self-care (01) ==
LOC: EME 21:26 → EDOF 05-13 04:12 → ENRESERV 05-13 04:19 → 5WEST 05-13 05:04
PROVIDERS: Hospitalist; Physician Assistant Medical
DX: F10.29 Alcohol dependence with unspecified alcohol-induced disorder (principal); R55 Syncope and collapse; Y90.4 Blood alcohol level of 80-99 mg/100 ml; F31.9 Bipolar disorder, unspecified; F19.10 Other psychoactive substance abuse, uncomplicated; F11.10 Opioid abuse, uncomplicated; F15.10 Other stimulant abuse, uncomplicated; F13.10 Sedative, hypnotic or anxiolytic abuse, uncomplicated; F17.210 Nicotine dependence, cigarettes, uncomplicated; Z86.19 Personal history of other infectious and parasitic diseases; M10.9 Gout, unspecified; G62.9 Polyneuropathy, unspecified; F20.9 Schizophrenia, unspecified; J45.909 Unspecified asthma, uncomplicated; K21.9 Gastro-esophageal reflux disease without esophagitis; E03.9 Hypothyroidism, unspecified
CPT/HCPCS: 70450; 71046; 80048; 80306 90; 81003; 84484; 85027; 93005; 93306; 99281; 99284; G0378; G0480

== ENCOUNTER 2017-05-19 01:22 | Inpatient (IN) | payer OTHER ==
[~2017-05-19] VITALS: Ht 182.9 cm; Wt 108.7 kg
[~2017-05-19 01:22] MED LIST changes: +FLUPHENAZINE H2.5 MG PO; +FLUPHENAZINE HCL1 MG PO
[2017-05-19 02:06] LABS: BASOPHIL (%) 1.1 % (0-1); BASOPHIL COUNT 0.1 K/uL (0-0.1); EOSINOPHIL (%) 2.9 % (0-5); EOSINOPHIL COUNT 0.2 K/uL (0-0.3); HEMATOCRIT 42.4 % (38.0-50.0); HEMOGLOBIN 14.6 G/DL (12.5-16.6); IMMATURE GRANULOCYTE (%) 0.1 % (0.0-0.7); LYMPHOCYTE (%) 39.5 % (15-42); LYMPHOCYTE COUNT 3.2 K/uL (1.0-2.8); MCH 31.2 PG (29.0-34.0); MCHC 34.4 G/DL (30.0-36.0); MCV 90.6 FL (86-99); MONOCYTE (%) 7.7 % (3-12); MONOCYTE COUNT 0.6 K/uL (0-0.8); NEUTROPHIL (%) 48.7 % (45-76); PLATELET COUNT 331 K/uL (156-360); RBC DIS.WIDTH-CV 13.4 % (11.8-14.6); RBC DIS.WIDTH-SD 44.5 % (39-53); RED BLOOD COUNT 4.68 M/uL (4.00-5.50); WHITE BLOOD COUNT 8.2 K/uL (4.1-10.2)
[2017-05-19 02:26] LABS: ALBUMIN 4.5 g/dL (3.2-4.8); CHLORIDE 104 mEq/L (99-109); SODIUM 140 mEq/L (136-147)
[2017-05-19 02:28] LABS: GLUCOSE 91 mg/dL (70-99); TOTAL PROTEIN 7.2 g/dL (6.4-8.3)
[2017-05-19 02:30] LABS: TOTAL BILIRUBIN 0.3 mg/dL (0.0-1.0)
[2017-05-19 02:31] LABS: SERUM ETHYL ALCOHOL 264 mg/dL
[2017-05-19 02:32] LABS: ALKALINE PHOSPHATASE 62 IU/L (3-129); CREATININE 1.1 mg/dL (0.6-1.3); GFR ESTIMATE (CALCULATED) > 59 mL/min/ (58.99-99999)
[2017-05-19 02:33] LABS: AST (GOT) 36 IU/L (2-34)
[2017-05-19 02:34] LABS: UREA NITROGEN (BUN) 8 mg/dL (9-23)
[2017-05-19 02:35] LABS: SALICYLATE < 5.0 MG/DL (15-30)
[2017-05-19 02:36] LABS: ACETAMINOPHEN (TYLENOL) < 10 mcg/mL (10-30); ALT (GPT) 53 IU/L (3-49)
[2017-05-19 04:01] LABS: AMPHETAMINE NEGATIVE (500 ng/mL); BARBITURATES NEGATIVE (200 ng/mL); BENZODIAZEPINES PRESUMPTIVE POSITIVE (150 ng/mL); BUPRENORPHINE NEGATIVE (10 ng/mL); COCAINE NEGATIVE (150 ng/mL); METHADONE NEGATIVE (200 ng/mL); METHAMPHETAMINE NEGATIVE (500 ng/mL); OPIATES (MORPHINE) NEGATIVE (100 ng/mL); OXYCODONE NEGATIVE (100 ng/mL); PHENCYCLIDINE NEGATIVE (25 ng/mL); PROPOXYPHENE NEGATIVE (300 ng/mL); THC CANNABINOIDS NEGATIVE (50 ng/mL); TRICYCLIC ANTIDEPRESSANTS NEGATIVE (300 ng/mL)
[2017-05-19 04:40] LABS: BENZODIAZEPINES, URINE SCREEN POSITIVE (200 ng/mL)
[2017-05-19 13:08] VITALS: BP 128/71
[2017-05-19 13:10] VITALS: BP 128/71
[2017-05-19 17:02] VITALS: BP 126/76
[2017-05-20 07:46] VITALS: BP 101/55
[2017-05-20 15:51] VITALS: BP 117/65
[2017-05-21 07:39] VITALS: BP 103/53
[2017-05-21 15:43] VITALS: BP 123/60
[2017-05-22 07:38] VITALS: BP 100/51
[2017-05-22 16:05] VITALS: BP 123/58
[2017-05-23 07:35] VITALS: BP 118/68
[2017-05-23] MEDS ORDERED: OXCARBAZEPINE150 MG PO (08:56)
[2017-05-23] MEDS ORDERED: ACAMPROSATE CA333 MG PO (08:56)
== END 2017-05-23 11:22 | disposition home or self-care (01) | DRG 885 ==
LOC: EME 01:22 → EDOF 11:23 → 1WEST 11:23 → ENRESERV 12:16 → 1WEST 12:44
PROVIDERS: Emergency Medicine
DX: F31.9 Bipolar disorder, unspecified (principal); R45.851 Suicidal ideations; R45.850 Homicidal ideations; Z76.5 Malingerer [conscious simulation]; F10.229 Alcohol dependence with intoxication, unspecified; Y90.8 Blood alcohol level of 240 mg/100 ml or more; Z91.19 Patient's noncompliance with other medical treatment and regimen; Z91.14 Patient's other noncompliance with medication regimen; F19.10 Other psychoactive substance abuse, uncomplicated; F13.10 Sedative, hypnotic or anxiolytic abuse, uncomplicated; F41.9 Anxiety disorder, unspecified; F20.9 Schizophrenia, unspecified; K21.9 Gastro-esophageal reflux disease without esophagitis; F17.200 Nicotine dependence, unspecified, uncomplicated; Z59.0 Homelessness
CPT/HCPCS: 80053; 84443; 84999; 85025; 90837; 99281; 99285; G0480; J1630; J2060

== ENCOUNTER 2017-05-23 19:08 | Emergency (ER) | payer OTHER ==
[~2017-05-23] VITALS: Ht 182.9 cm; Wt 108.7 kg
[~2017-05-23 19:08] MED LIST changes: +ACAMPROSATE CA333 MG PO; +OXCARBAZEPINE150 MG PO
[2017-05-23 19:12] VITALS: BP 122/59
== END 2017-05-23 20:30 | disposition left against medical advice (07) ==
LOC: EME 19:08
DX: R68.89 Other general symptoms and signs (principal); Z53.21 Procedure and treatment not carried out due to patient leaving prior to being seen by health care provider
CPT/HCPCS: 99281; 99283